=== PATIENT | male | born 1985 | race Caucasian/White ===

== ENCOUNTER 2016-09-12 16:12 | Emergency (ER) | payer BC ==
[2016-09-12] MEDS ORDERED: PERCOCET 5MG/325MG TAB As Ordered ONE (18:03)
--- NOTE | 2016-09-12 19:16 | REP ---
Clinical: Trauma. Technique: Two Panorex views. Findings: The mandible appears intact without evidence for acute fracture. The dentition appears relatively normal absent right second upper tooth noted. No obvious lytic or blastic lesion to the mandible identified. Impression: Relatively normal examination. Signed by Ranjeet Martinez MD 09/12/2016 07:08 P
[2016-09-12] MEDS ORDERED: NORCO 5/325MG TABLET (BULK) As Ordered ONE (20:10)
--- NOTE | 2016-09-12 20:33 | EDDOCDS ---
Nurse's Notes [facility] Name: Leighton Thompson Age: 31 yrs Sex: Male : 1985 Arrival Date: 09/12/2016 Time: 16:12 Bed 3 Private MD: No Pcp Diagnosis: Dislocation of tooth Presentation: 09/12 16:17 Presenting complaint: Patient states: Patient reports having "Teeth smashed out of [facility] mouth". Patient reports incident occurred a couple of hours ago. Adult Sepsis Screening: The patient does not have new or worsening altered mentation. Patient's respiratory rate is less than 22. Systolic blood pressure is greater than 100. Patient has a qSOFA score of 0- Negative Sepsis Screen. Suicide/Homicide risk assessment- the patient denies having any suicidal and/or homicidal ideations and does not present with any other emotional, behavioral or mental health complaints. 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 Transition of care: patient was not received from another setting of care. 16:17 Acuity: LILIANE Level 4 [facility] 16:17 Method Of Arrival: Walkin/Carried/Asstd [facility] Triage Assessment: 16:17 General: Appears in no apparent distress, Behavior is appropriate for age, cooperative. [facility] Pain: Location: mouth Pain currently is 2 out of 10 on a pain scale. Pt Declines HIV testing. Neurological: Level of Consciousness is awake, alert, obeys commands, Oriented to person, place, time, Speech is normal, Facial symmetry appears normal, Facial symmetry: tongue is midline. Respiratory: Airway is patent Respiratory effort is even, unlabored, Respiratory pattern is regular, symmetrical. GI: Abdomen is non- distended. Derm: Skin is pink, warm & dry. Musculoskeletal: Range of motion intact in all extremities. Historical: - Allergies: No known drug Allergies; - Home Meds: 1. none - PMHx: none; - PSHx: none; - Social history: Smoking status: Patient states was never smoker of tobacco. Patient uses alcohol has alcohol on board at this time. . chewing tobacco. No barriers to communication noted, The patient speaks fluent Luxembourgish, Speaks appropriately for age. - Family history: Not pertinent. - : The pt / caregiver states he / she is not on anticoagulants. Home medication list is obtained from the patient. - Exposure Risk Screening:: None identified. Screenin:09 Screening information is obtained from the patient. Fall risk: No risks identified. pml Assistance ADL's: requires no assistance with activities of daily living. Abuse/DV Screen: The patient / caregiver reports he/she is: not in a situation that causes fear, pain or injury. Nutritional screening: No deficits noted. Advance Directives: Currently, there is no health care proxy. home support is adequate. Assessment: 18:09 General: Appears in no apparent distress, comfortable, Behavior is appropriate for age, pml cooperative. Pain: Location: right cheek and mouth Pain currently is 7 out of 10 on a pain scale. Neurological: Level of Consciousness is awake, alert, Oriented to person, place, time. EENT: Absence of teeth noted - upper right lateral incisor (#7). Cardiovascular: Capillary refill < 3 seconds. Respiratory: Airway is patent Respiratory effort is even, unlabored, Respiratory pattern is regular, symmetrical. GI: Abdomen is non- distended. Derm: Skin is pink, warm & dry. 19:24 General: Appears uncomfortable, well developed, Behavior is appropriate for age, jp6 cooperative. Pain: Location: face Pain currently is 7 out of 10 on a pain scale. Neurological: No deficits noted. Level of Consciousness is awake, alert, Oriented to person, place, time. EENT: Absence of teeth noted - upper right lateral incisor (#7). Cardiovascular: Capillary refill < 3 seconds Heart tones S1 S2 present. Respiratory: Airway is patent Respiratory effort is even, unlabored, Respiratory pattern is regular, symmetrical, Breath sounds are clear. GI: Abdomen is flat, non- distended. : No deficits noted. Derm: Skin is pink, warm & dry. Musculoskeletal: No deficits noted. 20:30 Reassessment: Patient states symptoms have not improved. General: pt wanting to go jp6 home.. Respiratory: No deficits noted. GI: No deficits noted. Derm: Skin is pink, warm & dry. Vital Signs: 16:13 BP 145 / 83; Pulse 80; Resp 18; Temp 98.0; Pulse Ox 99% on R/A; Weight 61.23 kg; Height elp 5 ft. 9 in. (175.26 cm); Pain 1/10; 19:24 BP 124 / 64; Pulse 105; Resp 16; Pulse Ox 98% on R/A; Pain 7/10; jp6 19:31 Temp 96.6; jlm 16:13 Body Mass Index 19.94 (61.23 kg, 175.26 cm) [facility] Vitals: 16:13 Log In Time: September 12, 2016 at 16:11. elp ED Course: 16:12 Patient visited by Kina Hall PCA. elp 16:12 No Pcp is Private Physician. elp 16:12 Patient moved to Waiting elp 16:14 Patient moved to Pre RCE elp 16:17 Triage Initiated jmb 17:42 Patient moved to 3 rs6 17:46 Nellie Barros MD is Attending Physician. sd1 17:46 Patient visited by Nellie Barros MD. sd1 18:09 The patient / caregiver is instructed regarding the plan of care and ED course. Patient pml has correct armband on for positive identification. Placed in gown. Bed in low position. Call light in reach. Side rails up X2. 18:11 Patient visited by Nel Davis RN. pml 18:48 [facility] Payment Agreement was scanned into [employer] and attached to record. zo 19:16 Skye Remy,KARRI is Primary Nurse. jp6 19:16 Patient visited by Skye Remy RN. jp6 19:31 Patient visited by Arline Hu, Security Team Lead. jlm 19:37 Attending Physician role handed off by Nellie Barros MD cs11 19:37 Irvin Al DO is Attending Physician. cs11 19:54 Panorex(orthopantogram) Returned. EDMS 20:30 No IV's were initiated during this patient's visit. No procedures done that require 6 assistance. Administered Medications: 18:09 Drug: oxyCODONE-acetaminophen 1 tabs [oxycodone-acetaminophen 5 mg-325 mg tablet (1 pml tabs)] Route: PO; 20:30 Drug: HYDROcodone-acetaminophen 4 pack- 1 packets [hydrocodone 5 mg-acetaminophen 325 jp6 mg tablet (1 tabs)] {Co-Signature: tm5 (Amalia Luque RN).} Route: PO; Order Results: Radiology Order: Panorex(orthopantogram) Test: Panorex(orthopantogram) REASON FOR EXAMINATION: Trauma; Clinical: Trauma.; ; Technique: Two Panorex views.; ; Findings: The mandible appears intact without evidence for acute fracture. The; dentition appears relatively normal absent right second upper tooth noted. No; obvious lytic or blastic lesion to the mandible identified.; ; Impression:; Relatively normal examination.; ; ; Signed by; Ranjeet Martinez MD 09/12/2016 07:08 P; Outcome: 19:48 Discharge ordered by Provider. cs11 20:30 Discharge Assessment: Patient awake, alert and oriented x 3. No cognitive and/or jp6 functional deficits noted. Patient verbalized understanding of disposition instructions. patient administered narcotics - yes. Pt provided with safe discharge. The following High Risk Discharge criteria are identified: None. Discharged to home ambulatory, with significant other. Condition: stable. Discharge instructions given to patient, Instructed on discharge instructions, follow up and referral plans. medication usage, Demonstrated understanding of instructions, medications, Pt was receptive of discharge instructions/ teaching. CT Study completed. Property sent home with patient. 20:32 Patient left the ED. jp6 Signatures: Dispatcher [employer] EDMS Nellie Barros MD MD sd1 Latasha Espinoza Paulina,RN RN Irvin Grover, DO cs11 Kina Hall, PRESIDENT COMMERCIAL BANK PRESIDENT COMMERCIAL BANK Davi Napier,RN RN Arline Armas, Security Team Lead Unit Anna Chandra, PRESIDENT COMMERCIAL BANK PRESIDENT COMMERCIAL BANK rs6 Skye Remy RN RN jp6 Amalia Luque RN tm5 MTDD
--- NOTE | 2016-09-12 20:33 | EDDOCDS ---
Physician Documentation [facility] Name: Leighton Thompson Age: 31 yrs Sex: Male : 1985 Arrival Date: 09/12/2016 Time: 16:12 Bed 3 Private MD: No Pcp Disposition: 09/12/16 19:48 Discharged to Home/Self Care. Impression: Dislocation of tooth. - Condition is Stable. - Medication Reconciliation, Local Pharmacy Hours form. - Follow up: Private Physician; When: Call to arrange an appointment; Reason: Recheck today's complaints. - Problem is new. - Symptoms are unchanged. - Notes: follow with dentist. Historical: - Allergies: No known drug Allergies; - Home Meds: 1. none - PMHx: none; - PSHx: none; - Social history: Smoking status: Patient states was never smoker of tobacco. Patient uses alcohol has alcohol on board at this time. . chewing tobacco. No barriers to communication noted, The patient speaks fluent Swedish, Speaks appropriately for age. - Family history: Not pertinent. - : The pt / caregiver states he / she is not on anticoagulants. Home medication list is obtained from the patient. - Exposure Risk Screening:: None identified. Vital Signs: 09/12 16:13 BP 145 / 83; Pulse 80; Resp 18; Temp 98.0; Pulse Ox 99% on R/A; Weight 61.23 kg / elp 134.99 lbs; Height 5 ft. 9 in. (175.26 cm); Pain 1/10; 19:24 BP 124 / 64; Pulse 105; Resp 16; Pulse Ox 98% on R/A; Pain 7/10; jp6 19:31 Temp 96.6; jlm 16:13 Body Mass Index 19.94 (61.23 kg, 175.26 cm) elp MDM: 17:51 oxyCODONE-acetaminophen 5 mg-325 mg 1 tabs PO once; with sip only ordered. sd1 17:52 Panorex(orthopantogram) Ordered. EDMS 18:42 Financial registration complete. zo 18:48 [facility] Payment Agreement was scanned into [employer] and attached to record. zo 19:49 HYDROcodone-acetaminophen 4 pack- 5 mg-325 mg 1 packets PO Per package directions; cs11 Dispense with patient. 1 po q4h prn for pain ordered. Administered Medications: 18:09 Drug: oxyCODONE-acetaminophen 1 tabs [oxycodone-acetaminophen 5 mg-325 mg tablet (1 pml tabs)] Route: PO; 20:30 Drug: HYDROcodone-acetaminophen 4 pack- 1 packets [hydrocodone 5 mg-acetaminophen 325 jp6 mg tablet (1 tabs)] {Co-Signature: tm5 (Amalia Luque RN).} Route: PO; Signatures: Dispatcher [employer] EDNellie Lutz MD MD sd1 Latasha Espinoza PaulinaRN RN Irvin Grover DO DO cs11 Davi DaveyRN RN Skye Avila RN RN jp6 Amalia Luque RN tm5 The chart was reviewed and I authenticate all verbal orders and agree with the evaluation and treatment provided.Attachments: 18:48 [facility] Payment Agreement zo MTDD
--- NOTE | 2016-09-14 21:33 | EDDOCDS ---
Nurse's Notes [facility] Name: Leighton Thompson Age: 31 yrs Sex: Male : 1985 Arrival Date: 09/12/2016 Time: 16:12 Bed 3 Private MD: No Pcp Diagnosis: Dislocation of tooth Presentation: 09/12 16:17 Presenting complaint: Patient states: Patient reports having "Teeth smashed out of [facility] mouth". Patient reports incident occurred a couple of hours ago. Adult Sepsis Screening: The patient does not have new or worsening altered mentation. Patient's respiratory rate is less than 22. Systolic blood pressure is greater than 100. Patient has a qSOFA score of 0- Negative Sepsis Screen. Suicide/Homicide risk assessment- the patient denies having any suicidal and/or homicidal ideations and does not present with any other emotional, behavioral or mental health complaints. 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 Transition of care: patient was not received from another setting of care. 16:17 Acuity: LILIANE Level 4 [facility] 16:17 Method Of Arrival: Walkin/Carried/Asstd [facility] Triage Assessment: 16:17 General: Appears in no apparent distress, Behavior is appropriate for age, cooperative. [facility] Pain: Location: mouth Pain currently is 2 out of 10 on a pain scale. Pt Declines HIV testing. Neurological: Level of Consciousness is awake, alert, obeys commands, Oriented to person, place, time, Speech is normal, Facial symmetry appears normal, Facial symmetry: tongue is midline. Respiratory: Airway is patent Respiratory effort is even, unlabored, Respiratory pattern is regular, symmetrical. GI: Abdomen is non- distended. Derm: Skin is pink, warm & dry. Musculoskeletal: Range of motion intact in all extremities. Historical: - Allergies: No known drug Allergies; - Home Meds: 1. none - PMHx: none; - PSHx: none; - Social history: Smoking status: Patient states was never smoker of tobacco. Patient uses alcohol has alcohol on board at this time. . chewing tobacco. No barriers to communication noted, The patient speaks fluent Belarusian, Speaks appropriately for age. - Family history: Not pertinent. - : The pt / caregiver states he / she is not on anticoagulants. Home medication list is obtained from the patient. - Exposure Risk Screening:: None identified. Screenin:09 Screening information is obtained from the patient. Fall risk: No risks identified. pml Assistance ADL's: requires no assistance with activities of daily living. Abuse/DV Screen: The patient / caregiver reports he/she is: not in a situation that causes fear, pain or injury. Nutritional screening: No deficits noted. Advance Directives: Currently, there is no health care proxy. home support is adequate. Assessment: 18:09 General: Appears in no apparent distress, comfortable, Behavior is appropriate for age, pml cooperative. Pain: Location: right cheek and mouth Pain currently is 7 out of 10 on a pain scale. Neurological: Level of Consciousness is awake, alert, Oriented to person, place, time. EENT: Absence of teeth noted - upper right lateral incisor (#7). Cardiovascular: Capillary refill < 3 seconds. Respiratory: Airway is patent Respiratory effort is even, unlabored, Respiratory pattern is regular, symmetrical. GI: Abdomen is non- distended. Derm: Skin is pink, warm & dry. 19:24 General: Appears uncomfortable, well developed, Behavior is appropriate for age, jp6 cooperative. Pain: Location: face Pain currently is 7 out of 10 on a pain scale. Neurological: No deficits noted. Level of Consciousness is awake, alert, Oriented to person, place, time. EENT: Absence of teeth noted - upper right lateral incisor (#7). Cardiovascular: Capillary refill < 3 seconds Heart tones S1 S2 present. Respiratory: Airway is patent Respiratory effort is even, unlabored, Respiratory pattern is regular, symmetrical, Breath sounds are clear. GI: Abdomen is flat, non- distended. : No deficits noted. Derm: Skin is pink, warm & dry. Musculoskeletal: No deficits noted. 20:30 Reassessment: Patient states symptoms have not improved. General: pt wanting to go jp6 home.. Respiratory: No deficits noted. GI: No deficits noted. Derm: Skin is pink, warm & dry. Vital Signs: 16:13 BP 145 / 83; Pulse 80; Resp 18; Temp 98.0; Pulse Ox 99% on R/A; Weight 61.23 kg; Height elp 5 ft. 9 in. (175.26 cm); Pain 1/10; 19:24 BP 124 / 64; Pulse 105; Resp 16; Pulse Ox 98% on R/A; Pain 7/10; jp6 19:31 Temp 96.6; jlm 16:13 Body Mass Index 19.94 (61.23 kg, 175.26 cm) [facility] Vitals: 16:13 Log In Time: September 12, 2016 at 16:11. [facility] ED Course: 16:12 Patient visited by Kina Hall PCA. elp 16:12 No Pcp is Private Physician. elp 16:12 Patient moved to Waiting elp 16:14 Patient moved to Pre RCE elp 16:17 Triage Initiated jmb 17:42 Patient moved to 3 rs6 17:46 Nellie Barros MD is Attending Physician. sd1 17:46 Patient visited by Nellie Barros MD. sd1 18:09 The patient / caregiver is instructed regarding the plan of care and ED course. Patient pml has correct armband on for positive identification. Placed in gown. Bed in low position. Call light in reach. Side rails up X2. 18:11 Patient visited by Nel Davis RN. pml 18:48 [facility] Payment Agreement was scanned into [employer] and attached to record. zo 19:16 Skye Remy,RN is Primary Nurse. jp6 19:16 Patient visited by Skye Remy RN. jp6 19:31 Patient visited by Arline Hu, Manager Strategy & Account. jlm 19:37 Attending Physician role handed off by Nellie Barros MD cs11 19:37 Irvin Al DO is Attending Physician. cs11 19:54 Panorex(orthopantogram) Returned. EDMS 20:30 No IV's were initiated during this patient's visit. No procedures done that require 6 assistance. 09/13 09:44 T-Sheet-- Draft Copy was scanned into [employer] and attached to record. [facility] Administered Medications: 09/12 18:09 Drug: oxyCODONE-acetaminophen 1 tabs [oxycodone-acetaminophen 5 mg-325 mg tablet (1 pml tabs)] Route: PO; 20:30 Drug: HYDROcodone-acetaminophen 4 pack- 1 packets [hydrocodone 5 mg-acetaminophen 325 jp6 mg tablet (1 tabs)] {Co-Signature: tm5 (Amalia Matice RN).} Route: PO; Order Results: Radiology Order: Panorex(orthopantogram) Test: Panorex(orthopantogram) REASON FOR EXAMINATION: Trauma; Clinical: Trauma.; ; Technique: Two Panorex views.; ; Findings: The mandible appears intact without evidence for acute fracture. The; dentition appears relatively normal absent right second upper tooth noted. No; obvious lytic or blastic lesion to the mandible identified.; ; Impression:; Relatively normal examination.; ; ; Signed by; Ranjeet Martinez MD 09/12/2016 07:08 P; Outcome: 19:48 Discharge ordered by Provider. cs11 20:30 Discharge Assessment: Patient awake, alert and oriented x 3. No cognitive and/or jp6 functional deficits noted. Patient verbalized understanding of disposition instructions. patient administered narcotics - yes. Pt provided with safe discharge. The following High Risk Discharge criteria are identified: None. Discharged to home ambulatory, with significant other. Condition: stable. Discharge instructions given to patient, Instructed on discharge instructions, follow up and referral plans. medication usage, Demonstrated understanding of instructions, medications, Pt was receptive of discharge instructions/ teaching. CT Study completed. Property sent home with patient. 20:32 Patient left the ED. jp6 Signatures: Dispatcher [employer] EDMS Nellie Barros MD MD sd1 Latasha Espinoza Paulina,RN RN Irvin Grover DO DO cs11 Kina Hall, PUBLIC SERVICE ADMINISTRATOR PUBLIC SERVICE ADMINISTRATOR Davi Napier,RN Arline Brennan, Manager Strategy & Account Unit Anan Chandra, PUBLIC SERVICE ADMINISTRATOR PUBLIC SERVICE ADMINISTRATOR rs6 Skye Remy RN RN jp6 Hoffert, Sarah seh Tonya Matice RN tm5 Chart Complete MTDD
--- NOTE | 2016-09-14 21:33 | EDDOCDS ---
Physician Documentation [facility] Name: Leighton Thompson Age: 31 yrs Sex: Male : 1985 Arrival Date: 09/12/2016 Time: 16:12 Bed 3 Private MD: No Pcp Disposition: 09/12/16 19:48 Discharged to Home/Self Care. Impression: Dislocation of tooth. - Condition is Stable. - Medication Reconciliation, Local Pharmacy Hours form. - Follow up: Private Physician; When: Call to arrange an appointment; Reason: Recheck today's complaints. - Problem is new. - Symptoms are unchanged. - Notes: follow with dentist. Historical: - Allergies: No known drug Allergies; - Home Meds: 1. none - PMHx: none; - PSHx: none; - Social history: Smoking status: Patient states was never smoker of tobacco. Patient uses alcohol has alcohol on board at this time. . chewing tobacco. No barriers to communication noted, The patient speaks fluent Ukrainian, Speaks appropriately for age. - Family history: Not pertinent. - : The pt / caregiver states he / she is not on anticoagulants. Home medication list is obtained from the patient. - Exposure Risk Screening:: None identified. Vital Signs: 09/12 16:13 BP 145 / 83; Pulse 80; Resp 18; Temp 98.0; Pulse Ox 99% on R/A; Weight 61.23 kg / elp 134.99 lbs; Height 5 ft. 9 in. (175.26 cm); Pain 1/10; 19:24 BP 124 / 64; Pulse 105; Resp 16; Pulse Ox 98% on R/A; Pain 7/10; jp6 19:31 Temp 96.6; jlm 16:13 Body Mass Index 19.94 (61.23 kg, 175.26 cm) elp MDM: 17:51 oxyCODONE-acetaminophen 5 mg-325 mg 1 tabs PO once; with sip only ordered. sd1 17:52 Panorex(orthopantogram) Ordered. EDMS 18:42 Financial registration complete. zo 18:48 [facility] Payment Agreement was scanned into [employer] and attached to record. zo 19:49 HYDROcodone-acetaminophen 4 pack- 5 mg-325 mg 1 packets PO Per package directions; cs11 Dispense with patient. 1 po q4h prn for pain ordered. 09/13 09:44 T-Sheet-- Draft Copy was scanned into [employer] and attached to record. [facility] Administered Medications: 09/12 18:09 Drug: oxyCODONE-acetaminophen 1 tabs [oxycodone-acetaminophen 5 mg-325 mg tablet (1 pml tabs)] Route: PO; 20:30 Drug: HYDROcodone-acetaminophen 4 pack- 1 packets [hydrocodone 5 mg-acetaminophen 325 jp6 mg tablet (1 tabs)] {Co-Signature: tm5 (Amalia Luqeu RN).} Route: PO; Signatures: Dispatcher [employer] EDNellie Lutz MD MD sd1 Latasha Espinoza PaulinaRN RN Irvin Grover DO DO cs11 Davi Davey RN RN jmb Palmer, Jessica, RN RN jp6 Nellie Guidry RN tm5 The chart was reviewed and I authenticate all verbal orders and agree with the evaluation and treatment provided.Attachments: 18:48 [facility] Payment Agreement zo 09/13 09:44 T-Sheet-- Draft Copy [facility] Chart Complete MTDD
--- NOTE | 2016-09-14 21:33 | EDDOCDS ---
Physician Documentation [facility] Name: Leighton Thompson Age: 31 yrs Sex: Male : 1985 Arrival Date: 09/12/2016 Time: 16:12 Bed 3 Private MD: No Pcp Disposition: 09/12/16 19:48 Discharged to Home/Self Care. Impression: Dislocation of tooth. - Condition is Stable. - Medication Reconciliation, Local Pharmacy Hours form. - Follow up: Private Physician; When: Call to arrange an appointment; Reason: Recheck today's complaints. - Problem is new. - Symptoms are unchanged. - Notes: follow with dentist. Historical: - Allergies: No known drug Allergies; - Home Meds: 1. none - PMHx: none; - PSHx: none; - Social history: Smoking status: Patient states was never smoker of tobacco. Patient uses alcohol has alcohol on board at this time. . chewing tobacco. No barriers to communication noted, The patient speaks fluent Japanese, Speaks appropriately for age. - Family history: Not pertinent. - : The pt / caregiver states he / she is not on anticoagulants. Home medication list is obtained from the patient. - Exposure Risk Screening:: None identified. Vital Signs: 09/12 16:13 BP 145 / 83; Pulse 80; Resp 18; Temp 98.0; Pulse Ox 99% on R/A; Weight 61.23 kg / elp 134.99 lbs; Height 5 ft. 9 in. (175.26 cm); Pain 1/10; 19:24 BP 124 / 64; Pulse 105; Resp 16; Pulse Ox 98% on R/A; Pain 7/10; jp6 19:31 Temp 96.6; jlm 16:13 Body Mass Index 19.94 (61.23 kg, 175.26 cm) elp MDM: 17:51 oxyCODONE-acetaminophen 5 mg-325 mg 1 tabs PO once; with sip only ordered. sd1 17:52 Panorex(orthopantogram) Ordered. EDMS 18:42 Financial registration complete. zo 18:48 [facility] Payment Agreement was scanned into [employer] and attached to record. zo 19:49 HYDROcodone-acetaminophen 4 pack- 5 mg-325 mg 1 packets PO Per package directions; cs11 Dispense with patient. 1 po q4h prn for pain ordered. 09/13 09:44 T-Sheet-- Draft Copy was scanned into [employer] and attached to record. [facility] Administered Medications: 09/12 18:09 Drug: oxyCODONE-acetaminophen 1 tabs [oxycodone-acetaminophen 5 mg-325 mg tablet (1 pml tabs)] Route: PO; 20:30 Drug: HYDROcodone-acetaminophen 4 pack- 1 packets [hydrocodone 5 mg-acetaminophen 325 jp6 mg tablet (1 tabs)] {Co-Signature: tm5 (Amalia Luque RN).} Route: PO; Signatures: Dispatcher [employer] EDNellie Lutz MD MD sd1 Latasha Espinoza PaulinaRN RN Irvin Grover DO DO cs11 Davi Davey RN RN jmb Palmer, Jessica, RN RN jp6 Nellie Guidry RN tm5 The chart was reviewed and I authenticate all verbal orders and agree with the evaluation and treatment provided.Attachments: 18:48 [facility] Payment Agreement zo 09/13 09:44 T-Sheet-- Draft Copy [facility] Chart Complete MTDD
== END 2016-09-12 20:32 | disposition home or self-care (01) ==
LOC: M ED 16:12
DX: S03.2XXA Dislocation of tooth, initial encounter (principal); W31.81XA Contact with recreational machinery, initial encounter; Y92.89 Other specified places as the place of occurrence of the external cause; Y93.89 Activity, other specified; Y99.8 Other external cause status

== ENCOUNTER 2017-10-13 17:36 | Emergency (ER) | payer BC ==
[2017-10-13] MEDS: MORPHINE 4 MG/ML 1ML VIAL (J2270) IM (18:30)
[2017-10-13] MEDS ORDERED: HYDROmorphone HCL 1 MG/ML SYRINGE (J1170) As Ordered (19:05)
[2017-10-13] MEDS ORDERED: HYDROmorphone 2 MG TAB PO (19:15)
[2017-10-13] MEDS: HYDROmorphone HCL 1 MG/ML SYRINGE (J1170) IV (19:15)
[2017-10-13 20:02] LABS: BASO # 0.1 10^3/uL (0.0-0.2); BASO % 0.8 % (0.0-1.0); EOS # 0.2 10^3/uL (0.0-0.50); EOS % 3.6 % (0.0-3.0); HEMATOCRIT 41.6 % (42.0-52.0); HEMOGLOBIN 14.3 g/dl (14.0-18.0); IMMATURE GRANULOCYTE % 0.3 % (0-3.0); LYMPH # 1.4 10^3/uL (1.5-4.5); LYMPH % 22.3 % (24.0-44.0); MEAN CORPUSCULAR HEMOGLOBIN 31.1 pg (27.0-33.0); MEAN CORPUSCULAR HGB CONC 34.4 g/dl (32.0-36.5); MEAN CORPUSCULAR VOLUME 90.4 fl (80.0-96.0); MONO # 0.6 10^3/uL (0.0-0.8); MONO % 9.5 % (0.0-5.0); NEUTROPHILS # 4.1 10^3/uL (1.8-7.7); NEUTROPHILS % 63.5 % (36.0-66.0); PLATELET COUNT, AUTOMATED 269 10^3/uL (150-450); RED CELL DISTRIBUTION WIDTH 12.5 % (11.5-14.5); WHITE BLOOD COUNT 6.4 10^3/uL (4.0-10.0)
[2017-10-13] MEDS: KETOROLAC 30 MG/ML VIAL (J1885) IV (20:11)
[2017-10-13 20:16] LABS: ANION GAP 9 MEQ/L (8-16); BLOOD UREA NITROGEN 10 MG/DL (7-18); CALCIUM LEVEL 8.8 MG/DL (8.5-10.1); CARBON DIOXIDE LEVEL 29 MEQ/L (21-32); CHLORIDE LEVEL 105 MEQ/L (98-107); CREATININE FOR GFR 0.77 MG/DL (0.70-1.30); GLOMERULAR FILTRATION RATE > 60.0 (>60); GLUCOSE, FASTING 101 MG/DL (70-100); POTASSIUM SERUM 4.1 MEQ/L (3.5-5.1); SODIUM LEVEL 143 MEQ/L (136-145)
[2017-10-13] MEDS: OXYCODONE/APAP 5MG/325MG(BULK FOR ED) 1 TABLET PO (21:12)
[2017-10-13] MEDS: MORPHINE 4 MG/ML 1ML VIAL (J2270) IV (21:25)
== END 2017-10-13 21:48 | disposition home or self-care (01) ==
LOC: M ED 17:36
DX: S92.064A Nondisplaced intraarticular fracture of right calcaneus, initial encounter for closed fracture (principal); S92.065A Nondisplaced intraarticular fracture of left calcaneus, initial encounter for closed fracture; S92.255A Nondisplaced fracture of navicular [scaphoid] of left foot, initial encounter for closed fracture; W11.XXXA Fall on and from ladder, initial encounter; Y92.89 Other specified places as the place of occurrence of the external cause; J45.909 Unspecified asthma, uncomplicated
CPT/HCPCS: J1170

== ENCOUNTER → 2017-10-15 | Outpatient (CLI) | payer BC | LOC: M RAD 06:24 | DX: M51.06 Intervertebral disc disorders with myelopathy, lumbar region (principal); M51.34 Other intervertebral disc degeneration, thoracic region; M51.24 Other intervertebral disc displacement, thoracic region; Z87.81 Personal history of (healed) traumatic fracture; S22.080A Wedge compression fracture of T11-T12 vertebra, initial encounter for closed fracture; S92.062A Displaced intraarticular fracture of left calcaneus, initial encounter for closed fracture; S92.061A Displaced intraarticular fracture of right calcaneus, initial encounter for closed fracture; X58.XXXA Exposure to other specified factors, initial encounter; Y92.89 Other specified places as the place of occurrence of the external cause | CPT/HCPCS: 72146 ==

== ENCOUNTER → 2019-02-28 | Outpatient (CLI) | payer BC ==
[~2019-02-28] MED LIST: KETO10TAB PO; PERC5TAB12 PO; WHEEMIS3 XX
== END ==
LOC: M OUTALCOH 07:53
PROVIDERS: ATTEND Psychiatry & Neurology Psychiatry
DX: Z13.39 Encounter for screening examination for other mental health and behavioral disorders (principal); F10.10 Alcohol abuse, uncomplicated

== ENCOUNTER 2019-03-28 14:00 | Outpatient (RCR) | payer BC | END 2019-03-29 | LOC: M OUTALCOH 14:00 | PROVIDERS: ATTEND Psychiatry & Neurology Psychiatry | DX: F10.10 Alcohol abuse, uncomplicated (principal); F17.200 Nicotine dependence, unspecified, uncomplicated ==

== ENCOUNTER 2019-04-25 14:44 | Outpatient (RCR) | payer BC | END 2019-04-29 | LOC: M OUTALCOH 14:44 | PROVIDERS: ATTEND Psychiatry & Neurology Psychiatry | DX: F10.10 Alcohol abuse, uncomplicated (principal); F17.200 Nicotine dependence, unspecified, uncomplicated ==

== ENCOUNTER 2019-05-26 14:00 | Outpatient (RCR) | payer BC | END 2019-05-29 | LOC: M OUTALCOH 14:00 | PROVIDERS: ATTEND Psychiatry & Neurology Psychiatry | DX: F10.10 Alcohol abuse, uncomplicated (principal); F17.200 Nicotine dependence, unspecified, uncomplicated ==

== ENCOUNTER 2019-06-16 14:48 | Outpatient (RCR) | payer BC | END 2019-06-29 | LOC: M OUTALCOH 14:48 | PROVIDERS: ATTEND Psychiatry & Neurology Psychiatry | DX: F10.10 Alcohol abuse, uncomplicated (principal); F17.200 Nicotine dependence, unspecified, uncomplicated ==

== ENCOUNTER 2019-07-21 15:51 | Outpatient (RCR) | payer BC | END 2019-07-29 | LOC: M OUTALCOH 15:51 | PROVIDERS: ATTEND Psychiatry & Neurology Psychiatry | DX: F10.10 Alcohol abuse, uncomplicated (principal); F17.200 Nicotine dependence, unspecified, uncomplicated ==

== ENCOUNTER 2019-09-01 15:44 | Outpatient (RCR) | payer BC | END 2019-09-29 | LOC: M OUTALCOH 15:44 | PROVIDERS: ATTEND Psychiatry & Neurology Psychiatry | DX: F10.10 Alcohol abuse, uncomplicated (principal); F17.200 Nicotine dependence, unspecified, uncomplicated ==

== ENCOUNTER 2019-10-06 13:50 | Outpatient (RCR) | payer BC | END 2019-10-28 | LOC: M OUTALCOH 13:50 | PROVIDERS: ATTEND Psychiatry & Neurology Psychiatry | DX: F10.10 Alcohol abuse, uncomplicated (principal); F17.200 Nicotine dependence, unspecified, uncomplicated ==

== ENCOUNTER 2019-11-10 15:51 | Outpatient (RCR) | payer BC | END 2019-11-28 | LOC: M OUTALCOH 15:51 | PROVIDERS: ATTEND Psychiatry & Neurology Addiction Medicine | DX: F10.10 Alcohol abuse, uncomplicated (principal); F17.200 Nicotine dependence, unspecified, uncomplicated ==

== ENCOUNTER 2019-12-22 13:50 | Outpatient (RCR) | payer BC | END 2019-12-28 | LOC: M OUTALCOH 13:50 | PROVIDERS: ATTEND Psychiatry & Neurology Addiction Medicine | DX: F10.10 Alcohol abuse, uncomplicated (principal); F17.200 Nicotine dependence, unspecified, uncomplicated ==

== ENCOUNTER 2019-12-29 09:06 | Outpatient (RCR) | payer BC | END 2020-01-28 | LOC: M OUTALCOH 09:06 | PROVIDERS: ATTEND Psychiatry & Neurology Addiction Medicine | DX: F10.10 Alcohol abuse, uncomplicated (principal); F17.200 Nicotine dependence, unspecified, uncomplicated ==

== ENCOUNTER 2020-02-09 16:00 | Outpatient (RCR) | payer BC | END 2020-02-27 | LOC: M OUTALCOH 16:00 | PROVIDERS: ATTEND Psychiatry & Neurology Addiction Medicine | DX: F10.10 Alcohol abuse, uncomplicated (principal); F17.200 Nicotine dependence, unspecified, uncomplicated ==

== ENCOUNTER → 2020-05-02 | Outpatient (REF) | payer BC | LOC: M LAB REF 12:36 | PROVIDERS: ATTEND Physician Assistant | DX: L03.115 Cellulitis of right lower limb (principal) ==

== ENCOUNTER → 2021-02-26 | Outpatient (REF) | payer BC | LOC: M SMT 13:14 | PROVIDERS: ATTEND Urology | DX: Z30.2 Encounter for sterilization (principal) ==

== ENCOUNTER 2021-07-24 18:34 | Emergency (ER) | payer BC ==
[~2021-07-24] VITALS: Ht 175.3 cm; Wt 65.9 kg
[2021-07-24] MEDS ORDERED: ONDANSETRON 4MG/2ML VIAL IV ONE (19:05)
[2021-07-24 19:32] LABS: BASO # 0.1 10^3/uL (0.0-0.2); BASO % 0.6 % (0.0-1.0); EOS # 0.3 10^3/uL (0.0-0.5); EOS % 3.1 % (0.0-3.0); HEMATOCRIT 45.7 % (42.0-52.0); HEMOGLOBIN 15.8 g/dl (13.5-17.5); LYMPH # 1.5 10^3/uL (1.5-5.0); LYMPH % 13.3 % (24.0-44.0); MEAN CORPUSCULAR HGB CONC 34.6 g/dl (32.0-36.5); MEAN CORPUSCULAR VOLUME 89.8 fl (80.0-96.0); MONO # 0.7 10^3/uL (0.0-0.8); MONO % 6.8 % (2.0-8.0); NEUTROPHILS # 8.3 10^3/uL (1.5-8.5); NEUTROPHILS % 75.7 % (36.0-66.0); PLATELET COUNT, AUTOMATED 253 10^3/uL (150-450); RED BLOOD COUNT 5.09 10^6/uL (4.30-6.10); WHITE BLOOD COUNT 10.9 10^3/uL (4.0-10.0)
[2021-07-24 20:06] LABS: ALBUMIN 4.5 GM/DL (3.2-5.2); ALT/SGPT 48 U/L (12-78); BILIRUBIN,TOTAL 0.3 MG/DL (0.2-1.0); BLOOD UREA NITROGEN 12 MG/DL (7-18); CALCIUM LEVEL 9.2 MG/DL (8.5-10.1); CARBON DIOXIDE LEVEL 27 MEQ/L (21-32); CHLORIDE LEVEL 103 MEQ/L (98-107); GLOMERULAR FILTRATION RATE > 60.0 (>60); GLUCOSE, FASTING 102 MG/DL (70-100); LIPASE 124 U/L (73-393); POTASSIUM SERUM 3.9 MEQ/L (3.5-5.1); SODIUM LEVEL 141 MEQ/L (136-145)
[2021-07-24] MEDS ORDERED: GI COCKTAIL 50ML BTL(HYOSCYAMINE/MAALOX/LIDOCAINE VISCOUS)(1:3:1) PO ONE (20:30)
[2021-07-24 22:01] VITALS: BP 140/69
[2021-07-24] MEDS ORDERED: ONDA4TAB6 PO (22:27)
== END 2021-07-24 22:35 | disposition home or self-care (01) ==
LOC: M ED 18:34
DX: R10.13 Epigastric pain (principal); R11.2 Nausea with vomiting, unspecified; K82.4 Cholesterolosis of gallbladder
CPT/HCPCS: 76705; 80053; 83690; 85025; 96374; 99284; J2405

== ENCOUNTER → 2022-05-15 | Outpatient (CLI) | payer BC ==
[~2022-05-15] MED LIST changes: +ONDA4TAB6 PO
== END ==
LOC: M OUTALCOH 14:55
PROVIDERS: ATTEND Psychiatry & Neurology Psychiatry
DX: F10.10 Alcohol abuse, uncomplicated (principal)

== ENCOUNTER → 2022-06-03 | Outpatient (REF) | payer BC ==
[2022-06-03 08:51] LABS: SEMEN APPEARANCE OPAQUE (OPAQUE); SEMEN VISCOSITY LIQUID (LIQUID); SEMEN VOLUME 2.5 ml (2.0-5.0); SEMEN pH 8.5 (7.0-8.0); WBC CONCENTRATION >1 M/ml (<=1 M/ml)
== END ==
LOC: M SMT 08:34
PROVIDERS: ATTEND Physician Assistant
DX: Z98.52 Vasectomy status (principal)

== ENCOUNTER → 2022-06-29 | Outpatient (CLI) | payer BC ==
[~2022-06-29] MED LIST changes: +VITMTA PO
[2022-06-29 16:51] LABS: BASO % 0.6 % (0.0-1.0); EOS # 0.2 10^3/uL (0.0-0.5); EOS % 2.6 % (0.0-3.0); HEMATOCRIT 47.9 % (42.0-52.0); HEMOGLOBIN 15.3 g/dl (13.5-17.5); LYMPH # 1.9 10^3/uL (1.5-5.0); LYMPH % 28.8 % (24.0-44.0); MEAN CORPUSCULAR HEMOGLOBIN 30.9 pg (27.0-33.0); MEAN CORPUSCULAR HGB CONC 31.9 g/dl (32.0-36.5); MEAN CORPUSCULAR VOLUME 96.8 fl (80.0-96.0); MONO # 0.8 10^3/uL (0.0-0.8); MONO % 11.5 % (2.0-8.0); NEUTROPHILS # 3.7 10^3/uL (1.5-8.5); NEUTROPHILS % 56.3 % (36.0-66.0); PLATELET COUNT, AUTOMATED 266 10^3/uL (150-450); RED BLOOD COUNT 4.95 10^6/uL (4.30-6.10); WHITE BLOOD COUNT 6.6 10^3/uL (4.0-10.0)
[2022-06-29 17:08] LABS: BLOOD UREA NITROGEN 20 MG/DL (7-18); CALCIUM LEVEL 9.3 MG/DL (8.5-10.1); CARBON DIOXIDE LEVEL 30 MEQ/L (21-32); CHLORIDE LEVEL 105 MEQ/L (98-107); CREATININE FOR GFR 0.98 MG/DL (0.70-1.30); GLOMERULAR FILTRATION RATE > 60.0 (>60); GLUCOSE, FASTING 98 MG/DL (70-100); POTASSIUM SERUM 3.8 MEQ/L (3.5-5.1); SODIUM LEVEL 141 MEQ/L (136-145)
== END ==
LOC: M WUC 11:42
PROVIDERS: ATTEND Physician Assistant
DX: Z30.09 Encounter for other general counseling and advice on contraception (principal)

== ENCOUNTER → 2022-07-05 | Outpatient (CLI) | payer BC | LOC: M LABSMTC 11:17 | PROVIDERS: ATTEND Anesthesiology | DX: Z20.828 Contact with and (suspected) exposure to other viral communicable diseases (principal); Z11.59 Encounter for screening for other viral diseases ==

== ENCOUNTER 2022-07-09 11:45 | Day surgery (SDC) | payer BC ==
[~2022-07-09] VITALS: Ht 175.3 cm; Wt 66.7 kg
[~2022-07-09 11:45] MED LIST changes: +ceFAZolin SOD 2 GM in IV 1 EA IV ONE
[2022-07-09] MEDS ORDERED: LR 1,000 ML IV SCH ×2 (12:05→14:50)
[2022-07-09] MEDS ORDERED: fentaNYL 100 MCG/2 ML INJECTION As Ordered ONE (12:46)
[2022-07-09] MEDS ORDERED: MIDAZOLAM INJ 2MG/2ML VIAL (J2250 PER 1MG) As Ordered ONE (12:46)
[2022-07-09] MEDS ORDERED: ROCURONIUM BROMIDE 50 MG/5 ML VIAL As Ordered ONE (12:47)
[2022-07-09] MEDS ORDERED: dexameTHASONE 4 MG/ML 1ML VIAL (J1100 PER 1MG) As Ordered ONE (12:47)
[2022-07-09] MEDS ORDERED: propofoL 200 MG/20 ML VIAL As Ordered ONE (12:47)
[2022-07-09] MEDS ORDERED: LIDOCAINE 2% 100MG/5ML SDV (FOR ANES.) As Ordered ONE (12:47)
[2022-07-09] MEDS ORDERED: ONDANSETRON 4MG 2ML VIAL As Ordered ONE (12:47)
[2022-07-09] MEDS ORDERED: BUPIVACAINE HCL 0.25% 30ML VIAL As Ordered ONE (13:16)
[2022-07-09] MEDS ORDERED: LIDOCAINE 1% SDV 30ML VIAL As Ordered ONE (13:16)
[2022-07-09] MEDS ORDERED: ACETAMINOPHEN 1000MG 100ML IV BAG As Ordered ONE (13:39)
[2022-07-09] MEDS ORDERED: ONDANSETRON 4MG 2ML VIAL IV PRN (14:50)
[2022-07-09] MEDS ORDERED: fentaNYL 100 MCG/2 ML INJECTION IV PRN (14:50)
[2022-07-09] MEDS ORDERED: oxyCODONE 5MG TAB PO PRN (14:50)
[2022-07-09] MEDS ORDERED: METOCLOPRAMIDE INJ 10MG/2ML VIAL (J2765 PER 1) IV PRN (14:50)
[2022-07-09] MEDS ORDERED: CEPH500C PO (14:58)
[2022-07-09] MEDS ORDERED: HYDR-3713 PO (14:58)
[2022-07-09 16:15] VITALS: BP 134/84
== END 2022-07-09 16:18 | disposition home or self-care (01) ==
LOC: M SDC 11:45
PROVIDERS: ATTEND Urology
DX: Z30.2 Encounter for sterilization (principal); Z87.891 Personal history of nicotine dependence
CPT/HCPCS: 55250; 88302; J0131; J0690; J1100; J2250; J2405; J3010

== ENCOUNTER → 2022-09-04 | Outpatient (REF) | payer BC ==
[~2022-09-04] MED LIST changes: +CEPH500C PO; +HYDR-3713 PO; -ceFAZolin SOD 2 GM in IV 1 EA IV ONE
[2022-09-04 13:18] LABS: SEMEN APPEARANCE OPAQUE (OPAQUE); SEMEN VISCOSITY LIQUID (LIQUID); SEMEN VOLUME 3.1 ml (2.0-5.0)
[2022-09-04 13:19] LABS: WBC CONCENTRATION >1 M/ml (<=1 M/ml)
== END ==
LOC: M SMT 12:32
PROVIDERS: ATTEND Physician Assistant
DX: Z98.52 Vasectomy status (principal)

== ENCOUNTER → 2024-07-18 | Outpatient (CLI) | payer BC, OTHER ==
[~2024-07-18] MED LIST changes: +ONDA-282 PO; -ONDA4TAB6 PO
== END ==
LOC: M WUC 15:23
PROVIDERS: ATTEND Internal Medicine
DX: R05.3 Chronic cough (principal)

== ENCOUNTER → 2024-10-10 | Outpatient (CLI) | payer OTHER ==
[~2024-10-10] MED LIST changes: +ISOVUE-370 76% 100ML VIAL As Ordered ONE
== END ==
LOC: M RAD 07:24
PROVIDERS: ATTEND Specialist
DX: K44.0 Diaphragmatic hernia with obstruction, without gangrene (principal); R07.89 Other chest pain; K76.0 Fatty (change of) liver, not elsewhere classified; R91.8 Other nonspecific abnormal finding of lung field; J98.11 Atelectasis
CPT/HCPCS: 71260; 74160; Q9967

== ENCOUNTER → 2024-10-24 | Outpatient (CLI) | payer OTHER ==
[~2024-10-24] MED LIST changes: +E-Z-GAS II EFFERVESCENT PACKET (SODIUM BICARB./CITRIC ACID/SIMETHICONE) As Ordered ONE; +E-Z-HD 98% w/w 340GM SUSP BTL As Ordered ONE; +E-Z-PAQUE 96% w/w SUSP 176GM BTL As Ordered ONE; -ISOVUE-370 76% 100ML VIAL As Ordered ONE
== END ==
LOC: M RAD 10:07
PROVIDERS: ATTEND Specialist
DX: K44.0 Diaphragmatic hernia with obstruction, without gangrene (principal); R07.89 Other chest pain

== ENCOUNTER → 2025-07-20 | Outpatient (CLI) | payer OTHER ==
[~2025-07-20] MED LIST changes: -E-Z-GAS II EFFERVESCENT PACKET (SODIUM BICARB./CITRIC ACID/SIMETHICONE) As Ordered ONE; -E-Z-HD 98% w/w 340GM SUSP BTL As Ordered ONE; -E-Z-PAQUE 96% w/w SUSP 176GM BTL As Ordered ONE
== END ==
LOC: M OUTALCOH 07:44
PROVIDERS: ATTEND Psychiatry & Neurology Psychiatry
DX: Z03.89 Encounter for observation for other suspected diseases and conditions ruled out (principal)